=== PATIENT | male | born 1995 | race African-American/Black ===

== ENCOUNTER 2017-03-11 15:39 | Emergency (ER) | payer MEDICAID ==
[~2017-03-11] VITALS: Ht 182.9 cm; Wt 80.0 kg
[2017-03-11] MEDS ORDERED: BACITRACIN ZINC OINT UDPKT TOP ONE ×3 (16:15→20:45)
[2017-03-11] MEDS ORDERED: KETOROLAC 60MG/2ML VIAL IM ONE (16:15)
[2017-03-11] MEDS ORDERED: TETANUS, DIPHTHERIA, PERTUSSIS VAC/PF 0.5ML (>7YR OLD) IM ONE (16:45)
[2017-03-11] MEDS ORDERED: HYDROCODONE/ACETAMINOPHEN 5/325MG TABLET PO PRN (20:45)
[2017-03-11] MEDS ORDERED: LIDOCAINE HCL 1% 20ML VIAL (Pyxis) INJ MC ONE (20:45)
[2017-03-11 20:56] VITALS: BP 122/86
== END 2017-03-12 00:02 | disposition home or self-care (01) ==
LOC: ER 15:45
DX: S90.812A Abrasion, left foot, initial encounter (principal); S90.811A Abrasion, right foot, initial encounter; S90.415A Abrasion, left lesser toe(s), initial encounter; S90.414A Abrasion, right lesser toe(s), initial encounter; V89.9XXA Person injured in unspecified vehicle accident, initial encounter; Y93.89 Activity, other specified; Y92.9 Unspecified place or not applicable; Y99.8 Other external cause status
CPT/HCPCS: 73030; 73130; 73630; 90471; 90715; 96372; 99284; A4217; J1885; J3490; X7700; Z7610